=== PATIENT | female | born 1985 | race Caucasian/White ===

== ENCOUNTER 2017-02-22 09:25 | Observation (INO) | payer MEDICAID ==
[~2017-02-22] VITALS: Ht 152.4 cm; Wt 57.2 kg
[2017-02-22] VITALS (23 sets, daily range): BP systolic 94–120; BP diastolic 47–62; PULSE 66–86; RESP 16–21; Ht 152.4 cm; Wt 57.2 kg
[~2017-02-22 09:25] MED LIST: FERR27TA PO; PREN1TAB17 PO
[2017-02-22] MEDS ORDERED: SOD CHLORIDE 0.9% 1,000 ML IV STA (09:44)
[2017-02-22] MEDS ORDERED: ACETAMINOPHEN 500 MG TAB PO STA (09:44)
--- NOTE | 2017-02-22 10:00 | ERD ---
ER Documentation Chief Complaint Date/Time DATE: 02/22/17 TIME: 09:57 Chief Complaint left side pelvic pain x this am, denies vaginal bleeding 4 weeks HPI Patient is a 31-year-old female, G3, P2, presents to the emergency department with left-sided pelvic pain which started around 4:30 AM today. Patient states she woke up with pain. Patient describes the pain to be sharp in nature. Patient denies any vaginal bleeding. Patient states her last menstrual period was on January 17, 2017. Patient denies any fevers, chills, vomiting, dysuria. Patient does admit to nausea. ROS All systems reviewed and are negative except as per history of present illness. Medications Home Meds Discontinued Reported Medications Vit-Iron Fumarate-FA ( Tablet) 1 Each Tablet, 1 EACH PO DAILY 04/12/13 Ferrous Sulfate (Iron) 1 Tab Tablet, 1 TAB PO DAILY 04/12/13 Allergies Allergies: Coded Allergies: No Known Allergy (Verified , 02/22/17) PMhx/Soc History of Surgery: No Anesthesia Reaction: No Hx Neurological Disorder: No Hx Respiratory Disorders: No Hx Cardiac Disorders: No Hx Psychiatric Problems: No Hx Miscellaneous Medical Probl: Yes () Hx Alcohol Use: No Hx Substance Use: No Hx Tobacco Use: No Smoking Status: Never smoker FmHx Family History: No diabetes Physical Exam Vitals Vital Signs Date Time Temp Pulse Resp B/P Pulse Ox O2 Delivery O2 Flow Rate FiO2 02/22/17 14:59 97.4 02/22/17 12:01 89 18 102/67 98 Room Air 02/22/17 11:28 70 18 108/62 98 Room Air 02/22/17 11:00 66 18 95/56 100 Room Air 02/22/17 10:47 71 18 98/65 100 Room Air 02/22/17 10:11 67 18 105/62 100 Room Air 02/22/17 09:26 98.1 83 18 101/67 98 Physical Exam GENERAL: Ill- appearing female. Appears in pain. HEAD: Normocephalic, atraumatic. EYES: Pupils are equally reactive bilaterally. EOMs grossly intact. No conjunctival erythema. ENT: Moist mucous membranes. No uvula deviation. No kissing tonsils. NECK: Supple. No meningismus. Normal range of motion of the neck. LUNG: Clear to auscultation bilaterally. No rhonchi, wheezing, rales or coarse breath sounds. HEART: Regular rate and rhythm. No murmurs, rubs or gallops. ABDOMEN: No scars, ecchymosis or rashes noted. Soft, nondistended. Tender to palpation in the left lower quadrant and left pelvic region. +Rebound tenderness and + guarding. (-) McBurney's point tenderness. EXTREMITIES: Equal pulses bilaterally. No peripheral clubbing, cyanosis or edema. No unilateral leg swelling. NEUROLOGIC: Alert and oriented. Moving all four extremities without any difficulty. Normal speech. Steady gait. SKIN: Normal color. Warm and dry. No rashes or lesions. Result Diagram: 02/22/17 1005 Results 24 hrs Laboratory Tests Test 02/22/17 10:05 White Blood Count 8.910^3/ul Red Blood Count 4.0410^6/ul Hemoglobin 12.6g/dl Hematocrit 36.3% Mean Corpuscular Volume 89.9fl Mean Corpuscular Hemoglobin 31.2pg Mean Corpuscular Hemoglobin Concent 34.7g/dl Red Cell Distribution Width 12.6% Platelet Count 49911^3/UL Mean Platelet Volume 10.3fl Neutrophils % 80.0% Lymphocytes % 14.7% Monocytes % 4.4% Eosinophils % 0.4% Basophils % 0.2% Nucleated Red Blood Cells % 0.0/100WBC Neutrophils # 7.110^3/ul Lymphocytes # 1.310^3/ul Monocytes # 0.410^3/ul Eosinophils # 0.010^3/ul Basophils # 0.010^3/ul Nucleated Red Blood Cells # 0.010^3/ul Prothrombin Time 13.7Sec Prothrombin Time Ratio 1.1 INR International Normalized Ratio 1.05 Activated Partial Thromboplast Time 33.5Sec Urine Color YELLOW Urine Clarity SLIGHTLY CLOUDY Urine pH 5.0 Urine Specific [place] 1.018 Urine Ketones NEGATIVEmg/dL Urine Nitrite NEGATIVEmg/dL Urine Bilirubin NEGATIVEmg/dL Urine Urobilinogen NEGATIVEmg/dL Urine Leukocyte Esterase 1+José/ul Urine Microscopic RBC 4/HPF Urine Microscopic WBC 2/HPF Urine Squamous Epithelial Cells FEW/HPF Urine Bacteria FEW/HPF Urine Mucus MODERATE/HPF Urine Hemoglobin 1+mg/dL Urine Glucose NEGATIVEmg/dL Urine Total Protein NEGATIVEmg/dl Beta HCG, Quantitative 1150.3mIU/ml Current Medications Medications (Trade) Dose Ordered Sig/Angela Route PRN Reason Start Time Stop Time Status Last Admin Dose Admin Sodium Chloride (NS) 1,000 ml @ 1,000 mls/hr Q1H STAT IV 02/22/17 09:44 02/22/17 10:43 DC 02/22/17 10:12 Acetaminophen 1000 mg 1,000 mg ONCE STAT PO 02/22/17 09:44 02/22/17 09:45 DC 02/22/17 10:37 Sodium Chloride (NS) 1,000 ml @ 1,000 mls/hr Q1H ONCE IV 02/22/17 11:00 02/22/17 11:59 DC 02/22/17 10:46 Hydromorphone HCl (Dilaudid (Rec)) 0.2 mg PACU ORDER PRN IV MILD PAIN LEVEL 1-3 02/22/17 14:30 02/22/17 21:00 Hydromorphone HCl (Dilaudid (Rec)) 0.4 mg PACU ORDER PRN IV MODERATE PAIN LEVEL 4-6 02/22/17 14:30 02/22/17 21:00 Hydromorphone HCl (Dilaudid (Rec)) 0.6 mg PACU ORDER PRN IV SEVERE PAIN LEVEL 7-10 02/22/17 14:30 02/22/17 21:00 Fentanyl (Sublimaze) 25 mcg PACU ORDER PRN IV MILD PAIN LEVEL 1-3 02/22/17 14:30 02/22/17 21:00 Fentanyl (Sublimaze) 50 mcg PACU ODER PRN IV MODERATE PAIN LEVEL 4-6 02/22/17 14:30 02/22/17 21:00 Fentanyl (Sublimaze) 75 mcg PACU ORDER PRN IV SEVERE PAIN LEVEL 7-10 02/22/17 14:30 02/22/17 21:00 Oxycodone/ Acetaminophen (Percocet (5/ 325)) 1 tab PACU ORDER PRN PO PAIN LEVEL 1-5 02/22/17 14:30 02/22/17 21:00 Oxycodone/ Acetaminophen (Percocet (5/ 325)) 2 tab PACU ORDER PRN PO PAIN LEVEL 6-10 02/22/17 14:30 02/22/17 21:00 Ondansetron HCl (Zofran Inj) 4 mg PACU ORDER PRN IV NAUSEA AND/OR VOMITING 02/22/17 14:30 02/22/17 21:00 Trimethobenzamide HCl (Tigan) 200 mg PACU ORDER PRN IM NAUSEA AND/OR VOMITING 02/22/17 14:30 02/22/17 21:00 Labetalol HCl (Labetalol) 5 mg PACU ORDER PRN IV HIGH BLOOD PRESSURE 02/22/17 14:30 02/22/17 21:00 Hydralazine HCl (Apresoline) 5 mg PACU ORDER PRN IV HIGH BLOOD PRESSURE 02/22/17 14:30 02/22/17 21:00 Ephedrine Sulfate 5 mg PACU ORDER PRN IV MAP LESS THAN 60 02/22/17 14:30 02/22/17 21:00 Meperidine HCl (Demerol) 25 mg PACU ORDER PRN IV POST-OP RIGORS 02/22/17 14:30 02/22/17 21:00 Diphenhydramine HCl (Benadryl) 25 mg PACU ORDER PRN IV PRURITUS 02/22/17 14:30 02/22/17 21:00 Midazolam HCl (Versed) 0.5 mg PACU ORDER PRN IV ANXIETY 02/22/17 14:30 02/22/17 21:00 Glycopyrrolate (Robinul) 0.4 mg STK-MED ONCE .ROUTE 02/22/17 13:40 02/22/17 14:[address] 50 mg 50 mg STK-MED ONCE .ROUTE 02/22/17 13:40 02/22/17 14:47 DC Propofol (Diprivan) 20 ml @ ud STK-MED ONCE .ROUTE 02/22/17 13:40 02/22/17 14:47 DC Cefazolin Sodium (Ancef) 1 gm STK-MED ONCE .ROUTE 02/22/17 13:40 02/22/17 14:47 DC Neostigmine Methylsulfate (Neostigmine) 3 mg STK-MED ONCE .ROUTE 02/22/17 13:40 02/22/17 14:47 DC Midazolam HCl (Versed) 2 mg STK-MED ONCE .ROUTE 02/22/17 13:40 02/22/17 14:47 DC Fentanyl (Sublimaze) 100 mcg STK-MED ONCE .ROUTE 02/22/17 13:40 02/22/17 14:47 DC Ondansetron HCl (Zofran Inj) 4 mg STK-MED ONCE .ROUTE 02/22/17 13:40 02/22/17 14:47 DC Dexamethasone (Decadron) 4 mg STK-MED ONCE .ROUTE 02/22/17 13:40 02/22/17 14:47 DC Phenylephrine HCl (Milton-Synephrine Inj Syg) 500 mcg STK-MED ONCE .ROUTE 02/22/17 14:12 02/22/17 14:47 DC Ketorolac Tromethamine (Toradol) 30 mg STK-MED ONCE .ROUTE 02/22/17 14:34 02/22/17 14:47 DC Fentanyl (Sublimaze) 100 mcg STK-MED ONCE .ROUTE 02/22/17 14:36 02/22/17 14:47 DC Procedures/MDM ED COURSE: The patient was stable throughout ED course. I kept the patient and/or family informed of laboratory and diagnostic imaging results throughout the ED course. DIAGNOSTIC IMAGING: Read by radiologist. Patient: QUINTIN MARTELL : 1985 Age: 31 Sex: F MR #: [id number] DOS: 02/22/17 0944 Ordering MD: KARIS MTZ PA-C Location: [facility]TE Room/Bed: PROCEDURE: OBSTETRICAL ULTRASOUND WITH ENDOVAGINAL IMAGES CLINICAL INDICATION: Vaginal bleeding, severe pelvic pain TECHNIQUE: Multiple sonographic images of the pelvis were obtained utilizing a transabdominal and endovaginal technique. The images were reviewed on a PACS workstation. COMPARISON: None. LMP: 01/17/2017 Gestational age by LMP: 5 weeks, 1 day FINDINGS: The uterus measures 10.2 x 5.5 x 6.5 cm. There is marked thickening of the endometrium to 22 mm. There is no evidence of an intrauterine . The right ovary measures 2.8 x 1.3 x 2.0 cm. The left ovary measures 7.2 x 6.2 x 7.8 cm. There is normal vascular flow in both ovaries. There is a 2.1 cm ovoid slightly hyperechoic lesion and possibly cystic lesion in the left adnexa with posterior acoustic enhancement. Foci of vascular flow noted within it. There is a large simple cystic lesion in the left ovary measuring up to 6.8 cm. Peripheral vascular flow is noted. There is moderate pelvic free fluid. IMPRESSION: There is marked thickening of the endometrium to 22 mm without evidence of an intrauterine . Moreover, there is a 2.1 cm slightly hyperechoic lesion with vascular flow in the left adnexa which may be an ectopic . There is moderate pelvic free fluid although it appears simple. 6.8 cm simple cystic lesion in the left ovary. An MRI of the pelvis without and with intravenous contrast is recommended for further evaluation although intravenous contrast is contraindicated if the patient may be and is thus advised once it has been determined that the patient is not . Clinical correlation is recommended. These findings were discussed with Dr. Sanders over the phone on 02/22/2017 at 11: 21 AM . RPTAT: EE Physician Tram Date Time Electronically viewed and signed by Sachin Damon Physician on 02/22/2017 11:21 RA/ CC: KARIS MTZ PA-C MEDICATIONS GIVEN: 2 L NS, Tylenol Patient tolerated medication well with no adverse reactions. Patient reported improvement in pain. MEDICAL DECISION MAKING: Patient is a 31-year-old female presents with left lower pelvic pain which started this morning. Patient states her last menstrual period was on January 17, 2017. Vital signs were reviewed. Patient was afebrile. Patient's blood pressure was noted to be 101/64 upon arrival to the ED. 2 large-bore IVs were placed. Patient was given 2 L of IV fluids. Abdominal exam revealed tenderness to palpation in the left lower quadrant and +peritoneal signs. Patient's CBC showed no evidence of symptomatic infection or severe anemia. Patient's beta-hCG was noted to be 1150.3. Patient's PT and INR with were within normal limits. Dr. Tobias, attending did conduct a bedside FAST exam, which did show a large cystic lesion in the patient's left ovary with questionable free fluid. Formal pelvic ultrasound read showed There is marked thickening of the endometrium to 22 mm without evidence of an intrauterine . Moreover, there is a 2.1 cm slightly hyperechoic lesion with vascular flow in the left adnexa which may be an ectopic . There is moderate pelvic free fluid although it appears simple. 6.8 cm simple cystic lesion in the left ovary. An MRI of the pelvis without and with intravenous contrast is recommended for further evaluation although intravenous contrast is contraindicated if the patient may be and is thus advised once it has been determined that the patient is not . Clinical correlation is recommended. Findings were discussed with my supervising physician Dr. Tobias as well as Dr. Lee, laborist installation and service technician. Dr. Lee agreed to exam the patient in the ED. Patient was typed and crossed. Decision was made to take the patient to the OR later today. At this time the patient's presentation is most consistent with possible ruptured ectopic and large left ovarian cyst. Patient was transferred to ED 1 for further management and treatment. Patient was stable at time of transfer. Dr. Tobias is aware of case. Departure Diagnosis: Primary Impression: Pelvic pain complicating Additional Impressions: Ectopic Location of ectopic : unspecified location Intrauterine status: unspecified Qualified Code: O00.90 - Ectopic , unspecified location, unspecified whether intrauterine present Ovarian cyst Laterality: left Qualified Code: N83.202 - Cyst of left ovary Condition: Stable Referrals: [facility] YOU HAVE RECEIVED A MEDICAL SCREENING EXAM AND THE RESULTS INDICATE THAT YOU DO NOT HAVE A CONDITION THAT REQUIRES URGENT TREATMENT IN THE EMERGENCY DEPARTMENT. FURTHER EVALUATION AND TREATMENT OF YOUR CONDITION CAN WAIT UNTIL YOU ARE SEEN IN YOUR DOCTORS OFFICE WITHIN THE NEXT 1-2 DAYS. IT IS YOUR RESPONSIBILITY TO MAKE AN APPOINTMENT FOR FOLOW-UP CARE. IF YOU HAVE A PRIMARY DOCTOR --you should call your primary doctor and schedule an appointment IF YOU DO NOT HAVE A PRIMARY DOCTOR YOU CAN CALL OUR PHYSICIAN REFERRAL HOTLINE AT IF YOU CAN NOT AFFORD TO SEE A PHYSICIAN YOU CAN CHOSE FROM THE FOLLOWING [facility] [address] [facility] [address] [facility] [address] [facility] [address] [facility]. [facility] [address] [facility] [address] [facility]. [facility] YOU HAVE RECEIVED A MEDICAL SCREENING EXAM AND THE RESULTS INDICATE THAT YOU DO NOT HAVE A CONDITION THAT REQUIRES URGENT TREATMENT IN THE EMERGENCY DEPARTMENT. FURTHER EVALUATION AND TREATMENT OF YOUR CONDITION CAN WAIT UNTIL YOU ARE SEEN IN YOUR DOCTORS OFFICE WITHIN THE NEXT 1-2 DAYS. IT IS YOUR RESPONSIBILITY TO MAKE AN APPOINTMENT FOR FOLOW-UP CARE. IF YOU HAVE A PRIMARY DOCTOR --you should call your primary doctor and schedule and appointment IF YOU DO NOT HAVE A PRIMARY DOCTOR YOU CAN CALL OUR PHYSICIAN REFERRAL HOTLINE AT . IF YOU CAN NOT AFFORD TO SEE A PHYSICIAN YOU CAN CHOSE FROM THE FOLLOWING [facility] INSTITUTIONS: [facility] [address] [place] [address] [facility] [address] [place] [address] [facility] + [facility] [address] [place] [address] AUDIO VISUAL DESIGN ENGINEER [place] [address] [facility] [address] [place], [place] [phone] OFFICE FAX CRAIG COLEMAN [address] [place], [place] [phone] [address] BR[address]O [address] [address] [place], [place] [phone] DIANA LUTHERJERRELL [address] [facility], [address] [address] [address] [place], [place] [phone] [facility] [address] [address] [place], [place] [address] [address] [facility] [id number] - JACQUES GALLAGHER [address], [facility] [address] [address] CADE, VANDANA [address] [facility]. [address], [facility] [phone] [place], [place] [address] [place] [address] Additional Instructions: Call your primary care doctor TOMORROW for an appointment during the next 1-2 days.See the doctor sooner or return here if your condition worsens before your appointment time. KARIS MTZ PA-C Feb 22, 2017 10:00
[2017-02-22 10:21] LABS: ADD SCAN DIFF NO
[2017-02-22 10:29] LABS: ADD UMIC YES; UR ASCORBIC ACID NEGATIVE (NEGATIVE); UR BACTERIA FEW /HPF (NONE SEEN); UR BILIRUBIN (Dip) NEGATIVE (NEGATIVE); UR BLOOD (Dip) 1+ mg/dL (NEGATIVE); UR CLARITY SLIGHTLY CLOUDY (CLEAR); UR COLOR YELLOW (YELLOW); UR GLUCOSE (Dip) NEGATIVE (NEGATIVE); UR KETONES (Dip) NEGATIVE (NEGATIVE); UR LEUKOCYTE ESTERASE (Dip) 1+ Leu/ul (NEGATIVE); UR MUCUS MODERATE /HPF (NONE SEEN); UR NITRITE (Dip) NEGATIVE (NEGATIVE); UR RBC 4 /HPF (0-5); UR SPECIFIC GRAVITY (Dip) 1.018 (1.003-1.030); UR SQUAMOUS EPITHELIAL CELL FEW /HPF (FEW); UR TOTAL PROTEIN (Dip) NEGATIVE (NEGATIVE); UR UROBILINOGEN (Dip) NEGATIVE (NEGATIVE)
[2017-02-22 10:59] LABS: INR 1.05; PROTIME 13.7 Sec (12.2-14.2); PT RATIO 1.1
[2017-02-22 11:00] LABS: PARTIAL THROMBOPLASTIN TIME 33.5 Sec (25.0-35.0)
[2017-02-22] MEDS ORDERED: SOD CHLORIDE 0.9% 1,000 ML IV ONE (11:00)
[2017-02-22 11:09] LABS: BASOPHILS % 0.2 % (0.0-2.0); EOSINOPHILS % 0.4 % (0.0-7.0); HEMATOCRIT 36.3 % (37.0-47.0); HEMOGLOBIN 12.6 g/dl (12.0-16.0); LYMPHOCYTES # 1.3 10^3/ul (0.8-2.9); LYMPHOCYTES % 14.7 % (15.0-51.0); MEAN CORPUSCULAR HEMOGLOBIN 31.2 pg (29.0-33.0); MEAN CORPUSCULAR HGB CONC 34.7 g/dl (32.0-37.0); MEAN CORPUSCULAR VOLUME 89.9 fl (82.0-101.0); MEAN PLATELET VOLUME 10.3 fl (7.4-10.4); MONOCYTE # 0.4 10^3/ul (0.3-0.9); MONOCYTES % 4.4 % (0.0-11.0); NEUTROPHIL # 7.1 10^3/ul (1.6-7.5); PLATELET COUNT 279 10^3/UL (140-415); RED BLOOD COUNT 4.04 10^6/ul (4.20-5.40); RED CELL DISTRIBUTION WIDTH 12.6 % (11.5-14.5); WHITE BLOOD COUNT 8.9 10^3/ul (4.8-10.8)
--- NOTE | 2017-02-22 11:22 | RADRPT ---
PROCEDURE: OBSTETRICAL ULTRASOUND WITH ENDOVAGINAL IMAGES CLINICAL INDICATION: Vaginal bleeding, severe pelvic pain TECHNIQUE: Multiple sonographic images of the pelvis were obtained utilizing a transabdominal and endovaginal technique. The images were reviewed on a PACS workstation. COMPARISON: None. LMP: 01/17/2017 Gestational age by LMP: 5 weeks, 1 day FINDINGS: The uterus measures 10.2 x 5.5 x 6.5 cm. There is marked thickening of the endometrium to 22 mm. T here is no evidence of an intrauterine . The right ovary measures 2.8 x 1.3 x 2.0 cm. The left ovary measures 7.2 x 6.2 x 7.8 cm. There is no rmal vascular flow in both ovaries. There is a 2.1 cm ovoid slightly hyperechoic lesion and possibly cystic lesion in the left adnexa wi th posterior acoustic enhancement. Foci of vascular flow noted within it. There is a large simple cystic lesion in the left ovary measuring up to 6.8 cm. Peripheral vascular flow is noted. There is moderate pelvic free fluid. IMPRESSION: There is marked thickening of the endometrium to 22 mm without evidence of an intrauterine . Moreover, there is a 2.1 cm slightly hyperechoic lesion with vascular flow in the left adnexa whi ch may be an ectopic . There is moderate pelvic free fluid although it appears simple. 6.8 cm simple cystic lesion in the left ovary. An MRI of the pelvis without and with intravenous co ntrast is recommended for further evaluation although intravenous contrast is contraindicated if the patient may be and is thus advised once it has been determined that the patient is not pre gnant. Clinical correlation is recommended. These findings were discussed with Dr. Sanders over the phone on 02/22/2017 at 11:21 AM . RPTAT: EE Physician Tram Date Time Electronically viewed and signed by Physician Tram on 02/22/2017 11:21 /
--- NOTE | 2017-02-22 12:35 | EN ---
Date/Time of Note Date/Time of Note DATE: 02/22/17 TIME: 12:30 ER Progress Note I have seen and evaluated the patient along with the PA and/or RIM ROLLER OPERATOR provider. I agree with the evaluation and plan of care. Please see their documentation for full ER course and evaluation. In short: 31-year-old female is a at approximately 4-1/2 weeks who presents with sudden onset of abdominal pain to the left lower quadrant. The patient was brought to my attention by the physician's assistant program manager with concern for ectopic . The patient describes severe pain diffusely to the abdomen worse to left lower quadrant. On exam: General: Uncomfortable, pallor Head: Normocephalic, atraumatic Eyes: Pupils equally reactive, EOM intact ENT: Moist mucous membranes Neck: Supple, no lymphadenopathy Respiratory: Lungs clear bilaterally, no distress Cardiovascular: RRR, no murmurs, rubs, or gallops Abdominal:. Genetic with focal tenderness left lower quadrant : Deferred MSK: No edema, no unilateral swelling, 5/5 strength Neurologic: Alert and oriented, moving all extremities, normal speech, no focal weakness, no cerebellar signs Skin: No rash Psych: Normal mood Procedure: Emergency Bedside Ultrasound: Indication: Fast examination to rule out free fluid Probe Type: Curvilinear Findings: All quadrants are reviewed, no evidence of free fluid to the right upper quadrant or left upper quadrant, no evidence of retro-cystic fluid however the patient has left adnexal fluid with a large echogenic mass to the adnexa. Assessment and plan: The patient presents with abdominal pain, borderline hypotension in the setting of . Strong concern for ruptured ectopic given borderline blood pressure and peritonitis. My fast examination shows no evidence of obvious free fluid however there is a left adnexal abnormality. Formal ultrasound shows concern for ectopic . Dr. Marley was notified immediately and came to the patient's bedside. The patient had 2 large-bore peripheral IVs and was receiving 2 L of resuscitation. I typed and crossmatch the patient for 4 units of packed red blood cells. At this time she does not require transfusion as she has stabilized with fluids. Dr. Marley will take the patient to the operating room for further management. Critical Care Note: Total time: 45 minutes Indication/Organ System Threat: Ruptured ectopic I spent the above amount of critical care time with the patient, not including billable procedures. This included chart review, consultations, repeat bedside evaluations, and titration of appropriate medications to prevent cardiopulmonary or respiratory collapse. Accepting care team and consultations: I discussed the current laboratory data, diagnostic imaging and emergency care provided. Admitting team: Dr. Marley Admitting team indication: Insurance directed Patient emergently taken to the operating room from the emergency department. Patient informed using a ham pumper. SINDY ROMAN MD Feb 22, 2017 12:35
[2017-02-22] MEDS ORDERED: DEXAMETHASONE 4 MG/ML 1 ML INJ ONE (13:40)
[2017-02-22] MEDS ORDERED: NEOSTIGMINE 3 MG/3 ML SYRINGE ONE (13:40)
[2017-02-22] MEDS ORDERED: MIDAZOLAM 1 MG/ML 2 ML INJ ONE (13:40)
[2017-02-22] MEDS ORDERED: GLYCOPYRROLATE 0.4 MG INJ ONE (13:40)
[2017-02-22] MEDS ORDERED: ONDANSETRON 4 MG INJ ONE (13:40)
[2017-02-22] MEDS ORDERED: ROCURONIUM 50 MG INJ ONE (13:40)
[2017-02-22] MEDS ORDERED: PROPOFOL 20 ML ONE (13:40)
[2017-02-22] MEDS ORDERED: CEFAZOLIN 1 GM INJ ONE (13:40)
[2017-02-22] MEDS ORDERED: FENTAnyl 50 MCG/ML VIAL ONE ×2 (13:40→14:36)
[2017-02-22] MEDS ORDERED: PHENYLephrine (100 MCG/ML) 5ML SYG ONE (14:12)
[2017-02-22] MEDS ORDERED: LABETALOL HCL 20MG INJ IV PRN (14:30)
[2017-02-22] MEDS ORDERED: TRIMETHOBENZAMIDE 100 MG/ML VIAL IM PRN (14:30)
[2017-02-22] MEDS ORDERED: OXYCODONE/ACETAMINOPHEN (5/325) TAB PO PRN ×3 (14:30→19:00)
[2017-02-22] MEDS ORDERED: MEPERIDINE 25 MG INJ IV PRN (14:30)
[2017-02-22] MEDS ORDERED: MIDAZOLAM 1 MG/ML 2 ML INJ IV PRN (14:30)
[2017-02-22] MEDS ORDERED: EPHEDrine SULFATE 50 MG/5 ML SYG IV PRN (14:30)
[2017-02-22] MEDS ORDERED: FENTAnyl 50 MCG/ML VIAL IV PRN ×3 (14:30)
[2017-02-22] MEDS ORDERED: HYDROmorphONE (0.2 MG/ML) 10ML SYG IV PRN ×3 (14:30)
[2017-02-22] MEDS ORDERED: ONDANSETRON 4 MG INJ IV PRN ×2 (14:30→23:00)
[2017-02-22] MEDS ORDERED: hydrALAzine 20 MG INJ IV PRN (14:30)
[2017-02-22] MEDS ORDERED: DIPHENHYDRAMINE 50 MG INJ IV PRN (14:30)
[2017-02-22] MEDS ORDERED: KETOROLAC 30 MG INJ ONE (14:34)
[2017-02-22] MEDS ORDERED: IBUPROFEN 600 MG TAB PO PRN (19:00)
[2017-02-23 00:02] VITALS: BP 111/61; PULSE 66; RESP 19
[2017-02-23 04:05] VITALS: BP 105/70; PULSE 62; RESP 20
[2017-02-23 04:10] VITALS: BP 93/60; PULSE 58
[2017-02-23 04:11] VITALS: BP 90/59
[2017-02-23] MEDS ORDERED: SOD CHLORIDE 0.9% 1,000 ML IV ONE (04:45)
[2017-02-23 05:20] LABS: ADD SCAN DIFF NO
[2017-02-23 05:32] LABS: BASOPHILS % 0.2 % (0.0-2.0); EOSINOPHILS % 0.2 % (0.0-7.0); HEMATOCRIT 31.4 % (37.0-47.0); HEMOGLOBIN 10.7 g/dl (12.0-16.0); LYMPHOCYTES # 1.4 10^3/ul (0.8-2.9); LYMPHOCYTES % 12.9 % (15.0-51.0); MEAN CORPUSCULAR HEMOGLOBIN 30.7 pg (29.0-33.0); MEAN CORPUSCULAR HGB CONC 34.1 g/dl (32.0-37.0); MEAN PLATELET VOLUME 10.4 fl (7.4-10.4); MONOCYTE # 0.7 10^3/ul (0.3-0.9); MONOCYTES % 6.4 % (0.0-11.0); NEUTROPHIL # 8.4 10^3/ul (1.6-7.5); NEUTROPHILS % 79.9 % (39.0-77.0); PLATELET COUNT 224 10^3/UL (140-415); RED BLOOD COUNT 3.49 10^6/ul (4.20-5.40); RED CELL DISTRIBUTION WIDTH 12.9 % (11.5-14.5); WHITE BLOOD COUNT 10.6 10^3/ul (4.8-10.8)
--- NOTE | 2017-02-23 06:26 | QN ---
Documentation Comment I was called by RN that patient experienced episodes of dizziness and lightheadedness when she was walking to the restroom. Orthostatics ordered as well as IV fluid, Attended to the patient bedside. Patient stated to the RN, she feels depressed due to loss of current . Per family dentist has some questions regarding surgery. Patient was comfortable in the bed. denied any dizziness or lightheadedness, shortness of breath or chest pain when she is in bed. Orthostatics reviewed. Pulse rate within normal range. Patient has adequate urine output GA: Alert and oriented 4. Does not appear to be in any acute distress. Patient looks depressed. Abdomen: Soft, appropriate tenderness in the laparoscopic incision. No rebound tenderness, no guarding, no abnormal distention Laparoscopic incisions clean dry and intact Extremities: No calf tenderness, no click no edema CV: RRR Lungs: Clear to auscultation bilaterally Adequate urine output noted CBC pending, Ordered as a stat Beta-hCG ordered, pending Assessment Status post diagnostic laparoscopy done for vaginal bleeding and severe abdominal pain, with non-discriminatory hCG, no IUP and ultrasound and a questionable adnexal mass concerning for ectopic as well as ovarian cyst in left side. Moderate amount of free fluid in the ultrasound Per Dr. Canales, Surgeon. Could not identify ectopic gestation underwent D&C as well as Laparoscopic ovarian cystectomy postoperative day #1 Adequate urine output Plan was to follow with the ECG and monitor the patient in-house Appears to be hemodynamically stable We will continue to monitor closely Follow-up with a CBC and hCG Depressed mood due to loss of current . remelt worker consultation requested Family had some questions regarding surgery will be discussed by primary surgeon today patient will be signed out to upcoming OB hospitalist for follow-up of the labs and hCG We will continue to monitor closely. IV bolus TERESA LI MD Feb 23, 2017 06:26
[2017-02-23] MEDS ORDERED: OXYCODONE/ASPIRIN (4.88/325) TAB PO PRN (07:30)
[2017-02-23 08:10] VITALS: BP 99/58; RESP 18
[2017-02-23] MEDS: IBUPROFEN 600 MG TAB PO SCH ×2 (08:53→11:57)
--- NOTE | 2017-02-23 10:07 | QN ---
Documentation Comment POD#1 is stable afebrile tolerates diet Good mood No Vb minimum abd pain smiles B-HCG went down significantly Abd soft NT ND Genitalia No blood at perinium --->Can be discharged as soon as seen by Social service --->follow up with her physician in [facility] in 2 weeks SHIMON PLUMMER M.D. Feb 23, 2017 10:07
--- NOTE | 2017-03-01 05:30 | HP ---
DATE OF ADMISSION: 02/22/2017 HISTORY OF PRESENT ILLNESS: This is a 31-year-old 3, para 2, admitted through the emergency room with diagnosis of suspected ectopic. The patient has free fluid in the abdominal cavity and also a 2 cm lesion was noted in the right fallopian tube and right adnexa. A 6 cm cyst was noticed on the left adnexa as well. PHYSICAL EXAMINATION: GENERAL: The patient was examined and general exam was normal. ABDOMEN: Tender, positive rebound on right and left side. GENITOURINARY: Genitalia exam: No blood was noticed at the perineum. The hCG was 1100. ASSESSMENT AND PLAN: The patient was taken to the operating room. The patient was discussed about the acute abdomen and the patient was discussed about the dilatation and curettage and suction and laparoscopic, possible left cystectomy, and removal of ectopic mass of the right side. The patient was extensively consulted that the procedure, the D and C was extensively discussed with the patient and the patient was informed that after this procedure as there is no sign of IUP, if there is earlier stage will be gone. The patient consented to D and C and suction and also laparoscopy, left ovarian cystectomy, removal of ectopic , D and C and suction. The patient was consented and was taken to the operating room. Dictated By: Bradley Caballero MD /demetrice/rosales /Document#: [id number]
--- NOTE | 2017-03-08 08:41 | OPR ---
DATE OF OPERATION: 02/22/2017 PROCEDURE: Operative laparoscopy, left ovarian cystostomy and right , distortion of the right ovary, . ATTENDING SURGEON: . ANESTHESIOLOGIST: . ESTIMATED BLOOD LOSS: Less than 2 to 3 cc. COMPLICATIONS: None. TECHNIQUE: The patient was taken to the operating room where general anesthesia was found to be adequate. The patient was placed in the dorsal lithotomy position, prepped and draped. Right was placed inside the vaginal wall and inferiorly was grasped by single tooth tenaculum. Pelvis was . was suctioned. Sharp cavity was done, then was inserted. Attention was turned to the abdominal field. incision was made toward underneath the umbilicus and first inserted . A second trocar was inserted 7 to 8 from the first. Trocar on the right side of the patient. done until direct visualization of the camera. The abdominal cavity was filled up with of CO2. Then 6 to 7 cm right ovarian cyst that was coarse was noted. There was some fluid in the abdominal cavity. The ovary was and cystotomy was done on the right side. The air fluid was suctioned and then attention was turned to the left side. There was 2 cm the left side. It was removed using a Gyrus applicator. Ovaries and tubes were examined thoroughly and cul-de-sac was examined. No signs of ectopic was noticed. The instrument was removed under direct visualization of the camera and specimens sent to pathology. The patient tolerated the procedure well. Skin incisions were closed using Dermabond. The patient tolerated the procedure well and was transferred to the recovery room in stable condition. There were no complications regarding this surgery. Dictated By: Bradley Caballero MD /demetrice/nano /Document#: [id number]
== END 2017-02-23 12:55 | disposition home or self-care (01) ==
LOC: FTE 09:25 → SDS 12:45 → MS1 12:47 → E/R 12:47
PROVIDERS: ADMIT Obstetrics & Gynecology; ATTEND Obstetrics & Gynecology
DX: O00.90 Unspecified ectopic pregnancy without intrauterine pregnancy (principal); R10.2 Pelvic and perineal pain; Z3A.01 Less than 8 weeks gestation of pregnancy
CPT/HCPCS: 36415; 49322; 58999; 59150; 76801; 76817; 81001; 84702; 85025; 85610; 85730; 86850; 86900; 86901; 86920; 88305; J0690; J1100; J1885; J2250; J2405; J2710; J3010; J7030; Z7500; Z7502; Z7512; Z7610; G0378; J2370